=== PATIENT | male | born 1960 | race Caucasian/White ===

== ENCOUNTER 2016-04-14 14:59 | Inpatient (IN) ==
[2016-04-14] MEDS ORDERED: Verapamil 5 MG/2 ML VIAL ONE (15:04)
[2016-04-14] MEDS ORDERED: Heparin 1,000 UNITS/500 mL NS 500 ML ONE (15:04)
[2016-04-14] MEDS ORDERED: *HR* Heparin 10,000 UNIT/10 ML VIAL ONE (15:05)
[2016-04-14] MEDS ORDERED: Nitroglycerin 1,000 MCG/10 ML VIAL IV ONE (15:05)
[2016-04-14] MEDS ORDERED: 0.9 % Sodium Chloride 2,000 ML ONE (15:09)
[2016-04-14] MEDS ORDERED: *HR* Midazolam HCl 2 MG/2 ML VIAL ONE ×2 (15:11→15:29)
[2016-04-14] MEDS ORDERED: *HR* FentaNYL (PF) 100 MCG/2 ML VIAL ONE (15:11)
[2016-04-14] MEDS ORDERED: 0.9 % Sodium Chloride 1,000 ML ONE (15:11)
--- NOTE | 2016-04-14 15:23 | Emergency Department Note ---
Disposition Clinical Impression: STEMI (ST elevation myocardial infarction) Disposition: Admitted As Inpatient Condition: Good Time of Disposition: 20:21 Chest Pain HPI - General Chief Complaint: ED Chest Pain Stated Complaint: STEMI Time Seen by Provider: 04/14/16 15:21 Source: patient, EMS Limitations: no limitations - History of Present Illness HPI Narrative: Patient is a 55-year-old male who is transferred from the [facility] for STEMI. Catheter lab was called prior to his arrival. Patient arrived in stable condition and was able to converse without problem. States he had 2 episodes of chest pain over the last few weeks. The most recent one was over the new year. States he has had increasing generalized weakness over the last few days so he went in to see his physician at the [facility]. He was found to have a troponin of 33. ST segment elevation was seen in the inferior leads. Patient was transferred over for cardiac catheterization. Pt complaint: chest pain Onset (ago): day(s) Duration: intermittent Pain Location: substernal Severity: moderate Severity scale (1-10): 0 Quality: aching, sharp Pain Radiation: jaw/teeth Improves with: nothing Worsens with: nothing Associated symptoms: Reports: nausea, vomiting - Related Data Home Medications Medication Instructions Recorded Confirmed Amlodipine [Norvasc] 5 mg PO DAILY 04/14/16 04/14/16 Aspirin [Lo-Dose Aspirin EC] 81 mg PO DAILY 04/14/16 04/14/16 Hydrochlorothiazide 25 mg PO DAILY 04/14/16 04/14/16 Insulin Regular U-500 [HumuLIN R 250 unit SQ QAM 04/14/16 04/14/16 U-500] Insulin Regular U-500 [HumuLIN R 270 unit SQ QPM 04/14/16 04/14/16 U-500] Losartan Potassium [Cozaar] 50 mg PO DAILY 04/14/16 04/14/16 Metoprolol [Lopressor] 25 mg PO BID 04/14/16 04/14/16 Neomycin/Polymyxin B Sulf/Hc 3 drop LEFT EAR TID 04/14/16 04/14/16 [Ytwhxxym-Wxybncgwl-Ka Ear Soln] [place]-3/Dha/Epa/Fish Oil [Fish Oil 1 cap PO DAILY 04/14/16 04/14/16 1,000 mg Softgel] Rosuvastatin Calcium [Crestor] 10 mg PO DAILY 04/14/16 04/14/16 Previous Rx's Medication Instructions Recorded Clopidogrel [Plavix] 75 mg PO DAILY #30 tablet 04/16/16 Allergies Allergy/AdvReac Type Severity Reaction Status Date / Time atorvastatin Allergy Unknown See Verified 04/14/16 19:43 Comments lisinopril Allergy Unknown See Verified 04/14/16 19:43 Comments testosterone Allergy Unknown See Verified 04/14/16 19:43 Comments All systems ED: reviewed and negative except as stated. Chest Pain PMH - Past Medical History Medical history: Reports: coronary artery disease, diabetes, hyperlipidemia, hypertension, myocardial infarction Psychiatric history: Reports: no psych history - Social History Smoking Status: Never smoker Alcohol use: Reports: occasionally Physical Exam - General Limitations: no limitations General appearance: alert, in no apparent distress - Head Head exam: atraumatic, normocephalic, normal inspection - Eye Eye exam: Present: normal appearance, PERRL, EOMI - ENT ENT exam: normal exam, normal oropharynx, mucous membranes moist - Neck Neck exam: Present: normal inspection, full ROM, trachea midline - Chest Chest inspection: Present: normal inspection, symmetric chest wall rise - Respiratory Respiratory exam: Present: normal lung sounds bilaterally - Cardiovascular Cardiovascular exam: Present: regular rate, normal rhythm, normal heart sounds - Abdominal Exam Abdominal exam: Present: soft, Non-Tender. Absent: tenderness, distention, guarding, rebound, rigidity - Extremities Exam Extremities exam: Present: normal inspection, full ROM. Absent: tenderness, pedal edema - Neurological Exam Neurological exam: Present: alert, oriented X3 - Psychiatric Psychiatric exam: Present: normal affect, normal mood - Skin Skin exam: Present: warm, dry, intact, normal color Course Course Narrative: Patient seen and examined. Worsening generalized weakness. 2 episodes of chest pain over the last few weeks. No chest pain at this time. Patient to go to [facility]ist. Vital Signs Temperature 99 F 04/14/16 15:03 Pulse Rate 80 04/14/16 15:03 Respiratory Rate 16 04/14/16 15:03 Blood Pressure 97/70 04/14/16 15:03 O2 Sat by Pulse Oximetry 92 L 04/14/16 15:03 Temperature 97.9 F 04/16/16 14:42 Pulse Rate 82 04/16/16 14:42 Respiratory Rate 18 04/16/16 14:42 Blood Pressure 120/81 04/16/16 14:42 O2 Sat by Pulse Oximetry 95 04/16/16 14:42 Oxygen Delivery Oxygen Delivery Nasal Cannula Chest Pain - Medical Records Medical records reviewed: Yes I reviewed the patient's medical records. - Lab Data Lab results reviewed: Yes I reviewed the patient's lab results. Result diagrams: 04/15/16 05:58 04/16/16 09:44 Lab Results 04/14/16 04/14/16 04/14/16 Range/Units 15:15 15:15 15:15 Hgb 13.2 (12.9-16.9) g/dL Hct 40.5 (37.5-50.1) % PT 13.2 H (9.4-12.1) Seconds INR 1.2 BUN 26 (8-26) mg/dL - Radiology Data Radiology results reviewed: Yes I reviewed the patient's radiology results. - EKG Data EKG attestation: Yes I reviewed and interpreted this EKG. Attestation Statement - Attestation Attestation: I examined this patient and my medical decision-making was reviewed with the Resident Physician. I agree with the documented findings, disposition and treatment plan as described except to the extent set forth below. Inferior STEMI. Emergently to the [employer]. Borderline blood pressure, fluids started.
[2016-04-14] MEDS ORDERED: Tirofiban 12.5 MG/250ML 12.5 MG/250 ML BAG ONE (15:36)
[2016-04-14 15:53] LABS: Hematocrit 40.5 % (37.5-50.1); Hemoglobin 13.2 g/dL (12.9-16.9)
[2016-04-14 15:58] LABS: INR 1.2; Prothrombin Time 13.2 Seconds (9.4-12.1)
[2016-04-14 16:00] LABS: Blood Urea Nitrogen 26 mg/dL (8-26)
[2016-04-14] MEDS ORDERED: Nitroglycerin 0.4 MG TAB.SUBL SL PRN (16:14)
[2016-04-14] MEDS ORDERED: Tirofiban 12.5 MG/250ML 12.5 MG/250 ML BAG IVC SCH (16:15)
[2016-04-14] MEDS ORDERED: Ondansetron 4 MG/2 ML VIAL IVP PRN (16:23)
[2016-04-14] MEDS ORDERED: Dextrose Gel 15 GM PO PRN ×2 (16:30)
[2016-04-14] MEDS ORDERED: D5% in Water 1,000 ML IV PRN (16:30)
[2016-04-14] MEDS ORDERED: *HR* Dextrose 50 % in Water (Syg) 50 ML SYRINGE IVP PRN (16:30)
--- NOTE | 2016-04-14 16:32 | Invasive Diagnostic Lab Proc ---
Name: Moustapha Galvan Date of Study: 04/14/2016 Date: 1960 Ht: 67.0in Medical Record#: [id number] Age: 55 Wt: 362.00lb Gender: Male BSA: 2.6 Order #: [id number] BMI: 56.7 Physicians Procedure Physician: Vamsi Dunne MD, [facility] Referring MD: Referring MD: Staff Name Position Time In Shira Galvan RT (R) Scrub 03:23 PM Marga Aldrich RN Convertible Power Shovel Operator 03:23 PM Shira Ochoa RT (R) Monitor 03:23 PM Michelle Lorenzo RN Convertible Power Shovel Operator 03:26 PM Indications Indication STEMI Procedures Performed Procedure PRQ CARD REVASC OK 1 VSL L HRT ARTERY/VENTRICLE ANGIO Pre-Procedure Checklist Informed consent is complete signed and on chart. H\\T\\P is on chart. ID band is on and ID verified with patient. Patient NPO for procedure The procedure was described for the patient and questions were answered. Blood Pressure: 110/66 ECG is on chart. Rhythm: NSR Plan of Care Patient will tolerate the procedure without complications. Adequate level of comfort will be maintained. Hemodynamics will remain stable Patient will recover from procedure without complications. Respiratory function will be maintained. Cardiac rhythm will remain stable. Patient temperature will be maintained. Patient and/or family have verbalized understanding of the procedure. Patient Education Chief Complaint/Reason for Test: Cardiac Cath Developmental Category: Adult (18-64 years) Intravenous Access Time IV Size Location DC'd Fluid/Drip Rate Units RN 20g 1 04/14" Patent On Arrival Rt Hand 0.9NaCl 25 ml/hr Marga Aldrich RN 18g 1 04/14" Patent On Arrival Lt Hand Allergies No Known Allergies lisinopril testosterone lipitor Vital Signs Time BP (mmHg) HR (bpm) O2 Sat. RR (bpm) LOC 03:23 PM 110 / 66 88 93 % 17 03:28 PM 96 / 56 79 94 % 34 03:31 PM 86 / 65 103 87 % 15 03:33 PM 94 / 57 80 92 % 31 03:34 PM 102 / 56 102 95 % 22 03:38 PM 116 / 55 74 94 % 11 03:44 PM 104 / 57 105 97 % 19 03:48 PM 104 / 52 79 96 % 16 03:53 PM 107 / 60 98 97 % 13 03:58 PM 106 / 62 78 96 % 26 04:04 PM 116 / 52 83 96 % 28 Procedural Medications Time Medication Dose Units Method Given By 03:22 PM Oxygen 4 L/min nasal cannula Marga Aldrich RN 03:25 PM Versed 2 mg Intravenous Marga Aldrich RN 03:25 PM Fentanyl 25 mcg Intravenous Marga Aldrich RN 03:28 PM Lidocaine 2% 20 ml Subcutaneous Vamsi Dunne MD, [facility] 03:28 PM Versed 1 mg Intravenous Marga Aldrich RN 03:28 PM Fentanyl 25 mcg Intravenous Marga Aldrich RN 03:30 PM Oxygen 6 L/min nasal cannula Marga Aldrich RN 03:32 PM Oxygen 8 L/min simple face mask Marga Aldrich RN 03:36 PM 03:38 PM Aggrastat Bolus: 84 ml Intravenous Marga Aldrich RN 03:38 PM Aggrastat 12.5mg/250ml 30 ml Intravenous Marga Aldrich RN 04:09 PM Effient 60 mg Orally Marga Aldrich RN ASA Classification: Emergent Procedure: ASA score is assumed Maddie Score Preprocedure Postprocedure Activity 2- Moves 4 extremities sustained head lift Activity 2- Moves 4 extremities sustained head lift Circulation 2- SBP +/= 20 points of pre-anesthetic level Circulation 2- SBP +/= 20 points of pre-anesthetic level Consciousness 2- Awake and alert oriented x 3 Consciousness 2- Awake and alert oriented x 3 O2 Saturation 2- Able to maintain O2 satruation of 92% on room air O2 Saturation 2- Able to maintain O2 satruation of 92% on room air Respiratory 2- Able to deep breathe and cough well Respiratory 2- Able to deep breathe and cough well Total Score 10 Total Score 10 Contrast Agent: Isovue Diagnostic Contrast: 149 ml Total Contrast: 149 ml Fluoro Dose: 1435 mGy Activated Clotting Time Time Seconds to Clot 04:09 PM 214 Procedure Log Time Note Enter By 03:15 PM Pt arrived to label remover 2 at 15:15 tsites 03:20 PM Vitals capture started with the following parameters, Patient=Adult, Interval=5 min, Initial Gkormqnd=606 mmHg, Deflation Rate=5 mmHg, Cuff placed on Left Arm 03:20 PM CathStat 03:22 PM Physician arrived 15:22 tsites 03:22 PM Procedure start 15:22 tsites 03:22 PM Time: 15:22 Oxygen on at 4 L/min per nasal cannula by Marga Aldrich RN tsites 03: PM Vitals capture started with the following parameters, Patient=Adult, Interval=5 min, Initial Espbrjjl=400 mmHg, Deflation Rate=5 mmHg, Cuff placed on Left Arm 03: PM Shira Galvan (R) Position: Scrub Time in: 15: tsites 03: PM Marga Aldrich RN Position: Convertible Power Shovel Operator Time in: 15: tsites 03: PM Shira Ochoa (R) Position: Monitor Time in: : tsites 03: PM HR=88 bpm, DIOS=636/66 mmhg, SpO2=93.0 %, Resp=17 B/min 03:24 PM Patient charges- Angio tray pack, Navilyst 3mm J, Pulse Oximetry and ACIST tubing and transducer tsites 03:24 PM Case Delayed No tsites 03:25 PM Time out performed according to hospital policy tsites 03:25 PM Time: 15:25 Versed 2 mg Intravenous Given by Marga Aldrich RN tsites 03: PM Time: 15:25 Fentanyl 25 mcg Intravenous Given by Marga Aldrich RN tsites 03: PM Michelle Lorenzo RN Position: Convertible Power Shovel Operator Time in: 15: tsites 03: PM Hair removed from procedure site in holding area using clippers. Bilateral groin prepped with Chloraprep by Brynn HarrisR) then patient draped. Skin intact. tsites 03: PM Clinical Presentation: STEMI or equivalent tsites 03: PM Recorded ECG: HR=74 Condition=Condition 1 03:27 PM Pressure channel 2 zeroed. 03:27 PM labs drawn in the er prior to arrival asa given at the [facility] tsites 03: PM Time: 15:28 20 ml Lidocaine 2% to right groin Subcutaneous Given by Vamsi Dunne MD, [facility] tsites 03: PM Time: 15:28 Versed 1 mg Intravenous Given by Marga Aldrich RN tsites 03: PM Time: 15:28 Fentanyl 25 mcg Intravenous Given by Marga Aldrich RN tsites 03: PM HR=79 bpm, NIBP=96/56 mmhg, SpO2=94.0 %, Resp=34 B/min 03:29 PM Access obtained by percutaneous puncture. 6Fr 23cm Terumo [place] sheath placed in right Femoral artery. [id number] tsites 03:30 PM 0.035 145cm Navilyst 3mmJ wire [id number] tsites 03:30 PM 5Fr FL 4 catheter inserted over the wire [facility] tsites 03:30 PM Recorded Pressure: Ao, HR=93, Condition=Condition 1 (Aorta) Ao 73/55/64 03:30 PM NIBP STAT measurement started. 03:31 PM Time: 15:30 Oxygen on at 6 L/min per nasal cannula by Marga Aldrich RN tsites 03:31 PM LCA angiography performed in multiple views. tsites 03:31 PM PA=038 bpm, NIBP=86/65 mmhg, SpO2=87.0 %, Resp=15 B/min 03:32 PM Catheter removed tsites 03:32 PM 6Fr IM Runway guide catheter was used to cannulate the PCI vessel successfully. reused? No tsites 03:32 PM Time: 15:32 Oxygen on at 8 L/min per simple face mask by Marga Aldrich RN tsites 03:32 PM NIBP STAT measurement started. 03:33 PM HR=80 bpm, NIBP=94/57 mmhg, SpO2=92 %, Resp=31 B/min 03:33 PM RCA angiography performed in multiple views. tsites 03:34 PM BR=005 bpm, UVWE=637/56 mmhg, SpO2=95 %, Resp=22 B/min 03:34 PM PCI lesion in Mid RCA. tsites 03:34 PM .014 PT Graphix 182cm guide wire across target lesion- successful. reused? No tsites 03:34 PM Inflation device was opened. tsites 03:34 PM 2.0 mm x 12 mm Emerge Monorail balloon across target lesion- successful. reused? No tsites 03:34 PM Balloon inflated @ 8 florentin for 6 seconds tsites 03:35 PM Balloon inflated @ 14 florentin for 7 seconds tsites 03:35 PM Balloon inflated @ 14 florentin for 8 seconds tsites 03:36 PM Balloon inflated @ 14 florentin for 8 seconds tsites 03:36 PM Time: 15:36 Heparin 4000 units Intravenous Given by Marga Aldrich RN tsites 03:36 PM Balloon inflated @ 14 florentin for 7 seconds tsites 03:37 PM Balloon catheter removed intact. tsites 03:37 PM 2.5 mm x 15 mm Emerge Monorail balloon across target lesion- successful. reused? No tsites 03:38 PM Balloon inflated @ 10 florentin for 8 seconds tsites 03:38 PM Time: 15:38 Aggrastat Bolus: 84 ml Intravenous Given by Marga Aldrich RN Tillman pump tsites 03:38 PM Balloon inflated @ 12 florentin for 10 seconds tsites 03:38 PM HR=74 bpm, ZXWZ=749/55 mmhg, SpO2=94.0 %, Resp=11 B/min 03:39 PM Time: 15:38 Aggrastat 12.5mg/250ml 30 ml Intravenous Given by Marga Aldrich RN Tillman pump tsites 03:39 PM Balloon inflated @ 12 florentin for 10 seconds tsites 03:39 PM Balloon inflated @ 14 florentin for 10 seconds tsites 03:40 PM Balloon inflated @ 14 florentin for 6 seconds tsites 03:40 PM Recorded Pressure: Ao, HR=95, Condition=Condition 1 (Aorta) Ao 80/60/69 03:41 PM Balloon inflated @ 14 florentin for 8 seconds tsites 03:41 PM Balloon inflated @ 6 florentin for 10 seconds tsites 03:42 PM Lesion found in Proximal RCA. Pre Stenosis: 100 Pre FROYLAN Flow: 0: No Flow/No perfusion tsites 03:42 PM Balloon inflated @ 14 florentin for 12 seconds tsites 03:42 PM Balloon inflated @ 14 florentin for 6 seconds tsites 03:43 PM Balloon inflated @ 6 florentin for 7 seconds tsites 03:43 PM Recorded ECG: HR=93 Condition=Condition 1 03:44 PM GW=786 bpm, PQBF=892/57 mmhg, SpO2=97 %, Resp=19 B/min 03:45 PM Balloon inflated @ 6 florentin for 5 seconds tsites 03:45 PM Balloon inflated @ 5 florentin for 8 seconds tsites 03:47 PM 2.5mm x 28mm Synergy bioabsorbable stent across target lesion- successful Lot #[id number] tsites 03:48 PM Stent deployed @ 18 florentin for 14 seconds tsites 03:48 PM HR=79 bpm, EBDL=804/52 mmhg, SpO2=96.0 %, Resp=16 B/min 03:49 PM Stent balloon reinflated @ 14 florentin for 10 seconds tsites 03:50 PM Stent balloon reinflated @ 16 floerntin for 12 seconds tsites 03:51 PM Stent delivery system removed intact. tsites 03:52 PM 2.5mm x 38mm Synergy bioabsorbable stent across target lesion- successful Lot #[id number] tsites 03:52 PM Stent deployed @ 18 florentin for 10 seconds tsites 03:53 PM Stent balloon reinflated @ 18 florentin for 14 seconds tsites 03:53 PM HR=98 bpm, ITGE=532/60 mmhg, SpO2=97.0 %, Resp=13 B/min 03:54 PM Stent delivery system removed intact. tsites 03:55 PM 3.0 mm x 30mm NC Emerge balloon across target lesion- successful. reused? No tsites 03:56 PM Balloon inflated @ 14 florentin for 8 seconds tsites 03:57 PM Balloon inflated @ 20 florentin for 13 seconds tsites 03:58 PM HR=78 bpm, RJAG=917/62 mmhg, SpO2=96.0 %, Resp=26 B/min 04:00 PM Guide catheter removed intact. tsites 04:00 PM Guide wire removed intact. tsites 04:00 PM wire reinserted catheter removed tsites 04:01 PM 5Fr Pigtail catheter inserted over the wire DNC tsites 04:02 PM Recorded Pressure: LV, HR=83, Condition=Condition 1 (Left Ventricle) LV 102/11/25 04:02 PM Catheter selectively placed in left ventricle tsites 04:02 PM Bolus angiogram of left Ventricle complete: 11 ml/sec for a total of 33 mls tsites 04:03 PM Recorded Pressure: LV, Ao, HR=85, Condition=Condition 1 (Left Ventricle) LV 95/7/35, (Aorta) Ao 96/47/66 04:03 PM Catheter removed tsites 04:03 PM Bolus angiogram of right Femoral complete: 2 ml/sec for a total of 4 mls tsites 04:04 PM HR=83 bpm, JZGU=745/52 mmhg, SpO2=96.0 %, Resp=28 B/min 04:09 PM At 16:09 the ACT was 214 seconds. tsites 04:09 PM Procedure completed at 16:09 tsites 04:09 PM Sign out completed: Radiation Dose 1435 mGy Fluoro Time: 9.2 Isovue 370 - 200ml contrast 149 ml given by Vamsi Dunne MD, [facility]. Complications: NoneConfirmed administered medications: Yes tsites 04:10 PM Time: 16:09 Effient 60 mg Orally Given by Marga Aldrich RN tsites 04:11 PM Isovue 370 - 500ml,1 Bottle(s) used. tsites 04:11 PM Sheath left in place to be pulled on floor/holding areaV+Pad tsites 04:11 PM Post ECG NSR tsites 04:11 PM Post Blood Pressure 122/72 tsites 04:11 PM 16:11 Post Pulses Bilateral DP \\T\\ PT 1+ tsites 04:11 PM Information taught Cardiac Cath, PCI, and V+ Pad tsites 04:12 PM Education needs Procedure, Plan of Care, and Responsibilities of Patient in Care tsites 04:12 PM Learning barriers :None tsites 04:12 PM Education Methods Verbal tsites 04:12 PM Education evaluation Able to repeat information tsites 04:12 PM Site status No bleeding/hematoma - Rt Groin as reported by Shira Galvan RT (R) at 16:12 tsites 04:12 PM Opsite applied tsites 04:12 PM Plavix, Effient or Brilinta given Yes tsites 04:12 PM Delay to floor No tsites 04:14 PM Report given to jazmine ANGEL Pt taken to ICU Room #4. 16:12 tsites 04:16 PM Patient out of room: 16:16 tsites 04:16 PM Complications: None tsites 04:16 PM Family placed in consult room. tsites 04:17 PM Lesion found in LMCA. Pre Stenosis: 20 Pre FROYLAN Flow: tsites 04:17 PM Lesion found in Mid LAD. Pre Stenosis: 40 Pre FROYLAN Flow: tsites 04:17 PM Lesion found in Mid LAD. Pre Stenosis: 20 Pre FROYLAN Flow: tsites 04:17 PM Lesion found in 1st Diagonal. Pre Stenosis: 50 Pre FROYLAN Flow: tsites 04:17 PM Left Main Coronary Artery with 20% stenosis tsites 04:18 PM Mid/Distal Left Anterior Descending Coronary Artery and diagonal branches with 50% stenosis. If graft is supplying this area, % stenosis tsites 04:18 PM Right Coronary, Right Posterior Descending Arteries with Right Posterolateral and Acute Marginal branches with 100 % stenosis. If graft is supplying this area, % stenosis tsites 04:18 PM Coronary Dominance: right tsites Complications Complication None None Hemodynamics Pressures Site Systolic/A Wave Diastolic/V Wave Mean AO 73 55 64 AO 80 60 69 LV 102 11 25 LV 95 7 35 AO 96 47 66 Post Procedure Information Blood Pressure: 122/72 mmHg Rhythm: NSR Post procedural instructions were given Closure Device Time Device Success/Fail 04/14/2016 4:19:00 PM Manual Compression Site Checks Time Location Status Staff Sheath In? Note 04:12 PM Rt Groin No bleeding/hematoma Shira Galvan RT (R) Pulses Time Site Pre-Procedure Post-Procedure Note Bilateral DP \\T\\ PT 1+ 4:11:00 PM Bilateral DP \\T\\ PT 1+ Updated by Shira Ochoa RT (R) on 04/14/2016 4:26:36 PM Shira Gabriela, RT electronically signed on 04/14/2016 4:27:31 PM with status of Final
--- NOTE | 2016-04-14 16:35 | Event Note ---
Date of Encounter: 04/14/16 Time of Encounter: 16:30 - Cardiology Event Note Late presenting STEMI s/p PCI RCA SCOTT x 2 (100%) with otherwise mild disease. EF 40%. Femoral access site at appropriate level of the common femoral artery over the femoral head and below the hypogastric art/inguinal ligament. Long sheath placed secondary to morbid obesity. Nursing informed that arterial puncture site likely ~3 inches cranial to the arterial sheath entry at the skin.
[2016-04-14] MEDS: Insulin LISPRO 300 UNITS/3 ML VIAL SQ SCH (17:04)
[2016-04-14 17:24] LABS: Calcium 8.8 mg/dL (8.6-10.8); Potassium 4.1 mEq/L (3.5-4.5)
--- NOTE | 2016-04-14 18:22 | Cardiology History & Physical ---
Date of Encounter: 04/19/16 Time of Encounter: 17:30 Assessment and Plan (1) STEMI (ST elevation myocardial infarction) Status: Acute Ongoing cardiac symptoms with inferior current of injury. Proceed with emergent LHC to delineate any coronary disease amenable to intervention. EF assessment will be completed. Labs are pending. Dual antiplatelet therapy, and heparin will be given. The assessment and plan as outlined above was discussed with the patient and/or family members who expressed understanding and agreement. All questions were answered. Qualifiers: Involved coronary artery: right coronary artery Qualified Code(s): I21.11 - ST elevation (STEMI) myocardial infarction involving right coronary artery (2) Diabetes Status: Acute Sliding scale insulin, QID FS. The assessment and plan as outlined above was discussed with the patient and/or family members who expressed understanding and agreement. All questions were answered. Qualifiers: Diabetes mellitus type: type 2 Diabetes mellitus complication status: with circulatory complication Diabetes mellitus complication detail: with other circulatory complications Diabetes mellitus joint terminal attack controller insulin use: with senior care use Qualified Code(s): E11.59 - Type 2 diabetes mellitus with other circulatory complications; Z79.4 - FDC (current) use of insulin (3) HTN (hypertension) Status: Chronic The assessment and plan as outlined above was discussed with the patient and/or family members who expressed understanding and agreement. All questions were answered. Qualifiers: Hypertension type: essential hypertension Qualified Code(s): I10 - Essential (primary) hypertension History of Present Illness Chief complaint: Chest pressure and dyspnea HPI: Mr. Galvan is a 55 year old male with no stated cardiac history presents with ongoing dyspnea on exertion and mild chest pressure after an 8 hour episode of more intense chest pressure Tuesday. He was seen at his PCP and EKG revealed inferior current of injury and STEMI alert was emergently activated. He denies syncope or palpitations. Past Med Surg Social Fam HX - Past Medical History Medical history: arthritis, coronary artery disease, diabetes, hyperlipidemia, hypertension, myocardial infarction Psychiatric history: no psych history - Past Surgical History Surgical History: no surgical history - Social History Smoking Status: Never smoker Smokeless Tobacco Status: No Alcohol use: occasionally Drug use: marijuana Medications and Allergies Amlodipine [Norvasc] 5 mg PO DAILY 04/14/16 [History] Aspirin [Lo-Dose Aspirin EC] 81 mg PO DAILY 04/14/16 [History] Hydrochlorothiazide 25 mg PO DAILY 04/14/16 [History] Insulin Regular U-500 [HumuLIN R U-500] 250 unit SQ QAM 04/14/16 [History] Insulin Regular U-500 [HumuLIN R U-500] 270 unit SQ QPM 04/14/16 [History] Losartan Potassium [Cozaar] 50 mg PO DAILY 04/14/16 [History] Metoprolol [Lopressor] 25 mg PO BID 04/14/16 [History] Neomycin/Polymyxin B Sulf/Hc [Poxycwgh-Oamtmhaba-Gv Ear Soln] 3 drop LEFT EAR TID 04/14/16 [History] [place]-3/Dha/Epa/Fish Oil [Fish Oil 1,000 mg Softgel] 1 cap PO DAILY 04/14/16 [ History] Rosuvastatin Calcium [Crestor] 10 mg PO DAILY 04/14/16 [History] Clopidogrel [Plavix] 75 mg PO DAILY #30 tablet 04/16/16 [Rx] Allergies atorvastatin Allergy (Unknown, Verified 04/14/16 19:43) See Comments UNABLE TO VERIFY REACTION- [facility] lisinopril Allergy (Unknown, Verified 04/14/16 19:43) See Comments UNABLE TO VERIFY REACTION- LISTED ON [facility] testosterone Allergy (Unknown, Verified 04/14/16 19:43) See Comments UNABLE TO VERIFY REACTION- LISTED ON [facility] All Systems Review: A 10-system review of systems was performed and is negative for pertinent findings except as documented above in the HPI. - Constitutional Constitutional: no chills, no fever(s) - EENT Eyes: no blurred vision, no loss of vision Nose, mouth and throat: no bleeding gums, no epistaxis - Cardiovascular Cardiovascular: chest pain at rest, chest pain with exertion - Respiratory Respiratory: no hemoptysis, no wheezing - Gastrointestinal Gastrointestinal: no hematemesis, no hematochezia - Genitourinary Genitourinary: no dysuria, no hematuria - Musculoskeletal Musculoskeletal: no arthralgias, no myalgias - Integumentary Integumentary: no erythema, no unusual bruising - Neurological Neurological: no loss of vision, no syncope - Psychiatric Psychiatric: no anxiety, no depression - Hematological/Lymphatic Hematologic/Lymphatic: no easy bleeding, no easy bruising Physical Examination Vital Signs, Last 4 Hours Temp Pulse Pulse Resp BP Pulse Ox 04/14/16 17:00 73 16 134/84 95 04/14/16 16:47 76 04/14/16 16:45 78 78 13 117/88 95 04/14/16 16:30 81 81 12 121/75 95 04/14/16 16:26 100.4 F H 82 82 12 108/67 88 L General: Conversant HEENT: Atraumatic, Normocephaly, Mucus Membranes Moist Neck: No JVD, Normal carotid pulses Cardiac: Reg Rate and Rhythm, Normal S1 and S2, No Murmur Lungs: Normal Breath Sounds Neuro: Alert and responsive Abdomen: Soft Skin: No rashes noted on visualized skin Musculoskeletal: No Chest Wall Tenderness Extremities: No Edema Results 04/15/16 05:58 04/16/16 09:44 Lab Results 04/14/16 16:52 Sodium 137 Potassium 4.1 Chloride 104 Carbon Dioxide 25 BUN 26 Creatinine 1.73 H Glucose 96 Calcium 8.8
[2016-04-14] MEDS: 0.9 % Sodium Chloride 1,000 ML IVC SCH (18:54)
[2016-04-14] MEDS ORDERED: Insulin LISPRO 300 UNITS/3 ML VIAL SQ SCH (21:00)
[2016-04-15] MEDS ORDERED: *HR* Enoxaparin 40 MG/0.4 ML SYRINGE SQ SCH (06:00)
[2016-04-15 06:14] LABS: Basophils % 0.3 %; Eosinophils # 0.1 K/mcL (0.0-0.6); Hematocrit 40.5 % (37.5-50.1); Hemoglobin 13.1 g/dL (12.9-16.9); Immature Granulocytes % 0.5 % (0-4); Lymphocytes # 1.6 K/mcL (0.6-4.6); Lymphocytes % 16.6 %; Mean Corpuscular HGB Conc 32.3 g/dL (31.6-35.5); Mean Corpuscular Hemoglobin 31.3 pg (28.0-33.3); Mean Corpuscular Volume 96.9 fL (83.0-100.0); Mean Platelet Volume 9.7 fL (9.4-12.4); Monocytes % 9.9 %; Neutrophils # 7.1 K/mcL (1.6-8.9); Platelet Count 204 K/mcL (140-400); Red Blood Count 4.18 M/mcL (4.19-5.50); Red Cell Distribution Width 14.2 % (11.5-14.5); Segmented Neutrophils % 71.7 %
[2016-04-15 06:28] LABS: Albumin 2.4 g/dL (3.5-5.0); Albumin/Globulin Ratio 0.6 (1.1-2.2); Bilirubin,Total 0.5 mg/dL (0.2-1.2); Calcium 8.9 mg/dL (8.6-10.8); Globulin 4.3 g/dL (2.4-3.5); Potassium 4.7 mEq/L (3.5-4.5); Total Protein 6.7 g/dL (6.0-8.3)
[2016-04-15] MEDS: Insulin LISPRO 300 UNITS/3 ML VIAL SQ SCH ×4 (07:37→22:36)
[2016-04-15] MEDS ORDERED: Aspirin 81 MG TAB.CHEW PO SCH (09:00)
--- NOTE | 2016-04-15 09:36 | Invasive Diagnostic Lab ---
Name: Moustapha Galvan Date of Study: 04/14/2016 Date: 1960 Ht: 170.2 cm /67.0 in Medical Record#: [id number] Age: 55 Wt: 164.2 kg / 362.00 lb Account/Order#: [id number] Gender: Male BSA: 2.6 Order #: [id number] Fluoro Dose: 1435 mGy BMI: 56.7 Procedure Physician: Vamsi Dunne MD, [facility] Referring MD: Referring MD: Procedures Performed: PCI of Acute MT LEFT HEART CATH Iliofemoral angiography w/ cath Indications: STEMI Impressions: There is severe one vessel coronary artery disease. Mildly reduced LVEF 35-40% Patient had successful PTCA/Drug-Eluting Stent placement in the mid-distal RCA O/L stent x 2 postdilated with 3.0 NC Recommendations: Optimal medical therapy of patient's disease. Aggressive risk factor modification. History/Risk Factors: obesity diabetic retinopathy neuropathy sleep apnea Diabetes Hypertension Dyslipidemia Procedure Access obtained in the right Femoral artery by percutaneous puncture Patient had successful PTCA/Drug-Eluting Stent placement in the proximal RCA. Complications: None, None Contrast: Isovue 149ml Closure Device: Manual Compression Hemodynamics: Pressures Site Systolic/ A Wave Diastolic/ V Wave End Diastolic/ Mean HR AO 73 55 64 93 AO 80 60 69 95 LV 102 11 25 83 LV 95 7 35 84 AO 96 47 66 85 LV Ventriculography Ejection Method: LV Gram Ejection Fraction: 35-40% Wall Motion: SEAY Anterobasal Normal Anterolateral Normal Apical: Normal Inferoapical Moderate Hypokinesis Inferobasal Akinesis Coronary Dominance: right Lesion Findings/Interventions * Left Main Coronary Artery There is a 30% stenosis in the LMCA. * Left Anterior Descending - smaller caliber vessel, likely diffuse negative remodeling There is a 30% stenosis in the Mid LAD. There is a 20% stenosis in the Distal LAD. There is a 50% stenosis in the 1st Diagonal. * Circumflex The Circumflex is small in size with mild diffuse disease * Right Coronary Artery There is a 60 mm long, 100% stenosis in the Mid-distal RCA. The lesion has a FROYLAN flow of 0 and has thrombus present. An intervention was performed on the Proximal RCA with a final stenosis of 0%. There were no lesion complications. The final FROYLAN flow was 3. Iliofemoral angiography reveals no significant disease in the distal external iliac or common femoral artery with appropriate sheath placement in the PAYMENT COLLECTOR. Interventional Device(s) Vessel Segment Type Name Diameter (mm) Length (mm) Proximal RCA balloon Emerge Monorail 2 12 Proximal RCA balloon Emerge Monorail 2.5 15 Proximal RCA bioabsorbable stent Synergy 2.5 28 Proximal RCA bioabsorbable stent Synergy 2.5 38 Proximal RCA balloon NC Emerge 3 30 Updated by [facility], RT (R) on 04/14/2016 4:27:37 PM Vamsi Dunne MD, FACC electronically signed on 04/15/2016 9:31:20 AM with status of Final
--- NOTE | 2016-04-15 09:43 | Cardiology Progress Note ---
<Tye Leon - Last Filed: 04/15/16 11:23> Date of Encounter: 04/15/16 Time of Encounter: 08:20 Assessment and Plan (1) STEMI (ST elevation myocardial infarction) Current Visit: Yes Status: Acute Patient presented with STEMI with inferior lead elevation and trop >50 and is now s/p PCI RCA SCOTT x 2 (100%). Patient is in no acute distress. Echocardiogram and todays EKG are still pending. Blood pressure, heart rate and telemetry normal. Plan: - Obtain and interpret Echocardiogram and EKG results. - Stop Effient and start Plavix 75mg once per day start 04/16/2016 - Continue Statin, ASA, Betablockade, nitroglycerine prn. Qualifiers: Involved coronary artery: right coronary artery Qualified Code(s): I21.11 - ST elevation (STEMI) myocardial infarction involving right coronary artery (2) HTN (hypertension) Current Visit: Yes Status: Acute Blood pressure is stable. Continue current inpatient regiment. Qualifiers: Qualified Code(s): I10 - Essential (primary) hypertension (3) Diabetes Current Visit: Yes Status: Acute Patients glucose is slightly elevated to 140's this am. He is post procedure. If his glucose continues to rise may have to start long acting insulin Levimer. Qualifiers: Diabetes mellitus type: type 2 Diabetes mellitus complication status: with circulatory complication Diabetes mellitus complication detail: with other circulatory complications Qualified Code(s): E11.59 - Type 2 diabetes mellitus with other circulatory complications Discussion w patient/family: The assessment and plan as outlined above was discussed with the patient and/or family members who expressed understanding and agreement. All questions were answered. Thank you for involving us in the care of your patient. Please call with any questions. Subjective Interval history: Mr. Galvan has been seen and examined at patient bedside this am. He is awake alert and interactive and in no acute distress. He says that he feels ok and better than he was. He denies any distress, chest pain, chest tightness, diaphoresis, N/V/D/C. He says he has not eaten yet this am. He would like to know if he can go home. He had no further questions or concerns. Objective Vital Signs, Last 4 Hours Temp Pulse Resp BP Pulse Ox 04/15/16 09:00 81 16 113/86 92 L 04/15/16 08:00 82 22 91/79 94 L 04/15/16 07:30 98.3 F 86 20 103/84 94 L 04/15/16 07:00 83 04/15/16 05:52 83 20 99/53 91 L General: Conversant, No Apparent Distress HEENT: Atraumatic, Normocephaly, Mucus Membranes Moist Neck: No JVD, Normal carotid pulses Cardiac: Reg Rate and Rhythm, Normal S1 and S2, No Murmur Lungs: Normal Breath Sounds, No Wheeze, Rales, Rhonchi Neuro: Alert and responsive, No focal deficits noted Abdomen: Soft, Non-Tender, Other (obese) Skin: No rashes noted on visualized skin Musculoskeletal: No Chest Wall Tenderness Extremities: No Clubbing, No Cyanosis, No Edema, Normal Pulses Results 04/15/16 05:58 04/15/16 05:58 Lab Results 04/14/16 04/14/16 04/15/16 16:52 18:15 05:58 WBC 9.9 Hgb 13.1 Hct 40.5 Plt Count 204 Sodium 137 Potassium 4.1 Chloride 104 Carbon Dioxide 25 BUN 26 Creatinine 1.73 H Glucose 96 Calcium 8.8 Total Bilirubin AST ALT Alkaline Phosphatase Troponin I > 50.00 H* 04/15/16 05:58 WBC Hgb Hct Plt Count Sodium 140 Potassium 4.7 H Chloride 106 Carbon Dioxide 28 BUN 28 H Creatinine 1.59 H Glucose 142 H Calcium 8.9 Total Bilirubin 0.5 AST 137 H ALT 100 H Alkaline Phosphatase 247 H Troponin I Consult Discharge Plan - Plan [facility]errals: [facility]Primary Care Provider[facility] - <Anna Small - Last Filed: 04/15/16 17:18> Date of Encounter: 04/15/16 Assessment and Plan Discussion w patient/family: I examined this patient and my medical decision-making was reviewed with the CONVALESCENT SITTER/PA/Advanced Practice Nurse/Resident Physician. I agree with the documented findings, disposition and treatment plan. Mr. Galvan has no concerning cardiac complaints today. He is free of chest pain and hemodynamically stable without congestive findings. There are no new murmurs on exam. Recommend continuing antiplatelet therapy for a minimum of 12 months. He is on an ARB at home which will be started tomorrow. Continue BB and statin. Transfer to floor. Objective Vital Signs, Last 4 Hours Temp Pulse Resp BP Pulse Ox 04/15/16 16:00 86 16 114/68 91 L 04/15/16 15:35 97.9 F 04/15/16 15:00 90 04/15/16 14:26 90 20 135/88 90 L Results 04/15/16 05:58 04/15/16 05:58 Lab Results 04/14/16 04/14/16 04/15/16 16:52 18:15 05:58 WBC 9.9 Hgb 13.1 Hct 40.5 Plt Count 204 Sodium 137 Potassium 4.1 Chloride 104 Carbon Dioxide 25 BUN 26 Creatinine 1.73 H Glucose 96 Calcium 8.8 Total Bilirubin AST ALT Alkaline Phosphatase Troponin I > 50.00 H* 04/15/16 05:58 WBC Hgb Hct Plt Count Sodium 140 Potassium 4.7 H Chloride 106 Carbon Dioxide 28 BUN 28 H Creatinine 1.59 H Glucose 142 H Calcium 8.9 Total Bilirubin 0.5 AST 137 H ALT 100 H Alkaline Phosphatase 247 H Troponin I
[2016-04-15] MEDS ORDERED: Perflutren Lipid Microsphere 1.3 ML in 0.9 % Sodium Chloride 8.7 ML IVP ONE (09:47)
--- NOTE | 2016-04-15 10:26 | Electrocardiograph Report ---
[facility] Test Date: 2016-04-14 Pat Name: Moustapha Galvan Department: 109 Room: 04 Gender: M Pigment Pumper: : 1960 Requested By: Vamsi Dunne Order Number: [id number] Reading MD: Vamsi Dunne MD Measurements Intervals [place] Rate: 78 P: 62 SD: 186 QRS: -21 QRSD: 98 T: -29 QT: 342 QTc: 375 Interpretive Statements SINUS RHYTHM LOW QRS VOLTAGE IN PRECORDIAL LEADS INFERIOR MYOCARDIAL INFARCTION, PROBABLY RECENT WITH POSTERIOR EXTENSION ACUTE NE Electronically Signed On 04-15-16 10:25:26 EST by Vamsi Dunne MD
[2016-04-15] MEDS: 0.9 % Sodium Chloride 1,000 ML IVC SCH (11:27)
--- NOTE | 2016-04-15 11:35 | ECHO - Doppler Report ---
Echo with Imaging Enhancement Agent Name: Moustapha Galvan Date of Study: 04/15/2016 Date: 1960 Ht: 67.0 in Medical Record#: [id number] Age: 55 Wt: 360.0 lb Gender: Male BSA: 2.6 Order #: [id number] Location: [facility] Room #: IC04 Reading Physician: Ras Barrera MD, [facility] Capital Campaign Fundraiser: Zeinab Lloyd Ordering Physician: Vamsi Dunne MD, [facility] Primary Physician: [facility] Indications: ACS Impressions: Technically sub-optimal due to poor echocardiographic windows. Echo contrast was used. Moderate LV systolic dysfunction, LVEF 35-40%. There is severe hypokinesis of the basal-mid inferior and basal-mid inferolateral cabrera. Mild concentric left ventricular hypertrophy. Moderate left ventricular diastolic dysfunction. Normal right ventricular size. Mild RV hypokinesis. Mild tricuspid regurgitation. Mild pulmonary hypertension. Estimated RVSP = 37 mmHg. Left Ventricular Wall Motion: Rest Echo Findings The mid inferior, basal inferior, mid inferior lateral and basal inferior lateral cabrera were hypokinetic. All other wall segments showed normal motion. Findings: Study Quality * Technically sub-optimal due to poor echocardiographic windows. Echo contrast was used. ECG Findings * Sinus rhythm with BBB. Left Ventricle * Moderate LV systolic dysfunction, LVEF 35-40%. There is severe hypokinesis of the basal-mid inferior and basal-mid inferolateral cabrera. * Mild concentric left ventricular hypertrophy. * Moderate left ventricular diastolic dysfunction. Right Ventricle * Normal right ventricular size. Mild RV hypokinesis. Left Atrium * Normal left atrial size. Right Atrium * Normal right atrial size. Aorta * Normally sized aortic root. Pericardium * There is no pericardial effusion present. IVC * The IVC is dilated. Aortic Valve * Aortic valve not well visualized. Appears trileaflet. * No aortic stenosis. * No aortic regurgitation. Mitral Valve * Normal mitral valve structure. * No mitral stenosis. * Trace mitral regurgitation. Tricuspid Valve * Tricuspid valve not well visualized. * No tricuspid stenosis. * Mild tricuspid regurgitation. * Mild pulmonary hypertension. Estimated RVSP = 37 mmHg. Pulmonic Valve * Pulmonic valve not well visualized. * No pulmonic stenosis. * No pulmonic regurgitation. History Hypertension Diabetes Hypercholesteremia History of CAD/PTCA Myocardial Infarction Contrast: Definity 1.3 ml in 8.7 ml of saline 3 ml. Measurements: BP: 99/ 53 2D Normal Values RVIDd: 3.50 cm IVSd: 1.30 cm 0.6 - 1.0 cm LVIDd: 5.70 cm 3.7 - 5.6 cm LVPWd: 1.20 cm 0.6 - 1.1 cm LVIDs: 4.20 cm 1.5 - 3.6 cm AO: 3.00 cm < 4.0 cm LA volume: 35 Mitral Valve Peak E:.83 m/sec Peak A:.71 m/sec E/A Ratio:1.2 Peak E' Lat Bradly:4.48 cm/s Peak E' Med Bradly:4.48 cm/s E/E' Lat Ratio:18.6 E/E' Med Ratio:18.6 Tricuspid Valve TV Regurg Peak Grad: 22.00mmHg TV Regurg Peak Bradly: 2.32m/sec Updated by Ras Barrera MD, [facility] on 04/15/2016 11:29:25 AM electronically signed on 04/15/2016 11:30:31 AM with status of Final Wall Motion Wyman: 1=Normal, 2=Hypokinesis, 3=Akinesis, 4=Dyskinesis, 5=Aneurysmal, 6=Hyperkinetic, X=Not Visualized (Blank)=Missing
[2016-04-15] MEDS ORDERED: Nitroglycerin 0.4 MG TAB.SUBL SL PRN (16:38)
[2016-04-15] MEDS ORDERED: Dextrose Gel 15 GM PO PRN ×2 (16:38)
[2016-04-15] MEDS ORDERED: *HR* Dextrose 50 % in Water (Syg) 50 ML SYRINGE IVP PRN (16:38)
[2016-04-15] MEDS ORDERED: 0.9 % Sodium Chloride 1,000 ML IVC SCH (16:38)
[2016-04-15] MEDS ORDERED: Ondansetron 4 MG/2 ML VIAL IVP PRN (16:38)
[2016-04-15] MEDS ORDERED: D5% in Water 1,000 ML IV PRN (16:38)
[2016-04-15] MEDS ORDERED: Insulin DETEMIR 100 UNIT/ML X5UNITS SQ SCH (21:00)
[2016-04-15] MEDS: *HR* Insulin Regular U-500 500 UNIT/ML SQ SCH (22:36)
[2016-04-16] MEDS: *HR* Enoxaparin 40 MG/0.4 ML SYRINGE SQ SCH (06:22)
--- NOTE | 2016-04-16 09:02 | Cardiology Progress Note ---
<Tye Leon - Last Filed: 04/16/16 10:17> Date of Encounter: 04/16/16 Time of Encounter: 08:59 Assessment and Plan (1) STEMI (ST elevation myocardial infarction) Current Visit: Yes Status: Acute Patient presented with STEMI with inferior lead elevation and trop >50 and is now s/p PCI RCA SCOTT x 2 (100%). Patient is in no acute distress. Blood pressure , heart rate and telemetry normal. Echocardiogram 04/15/2016: Moderate LV systolic dysfunction, LVEF 35-40%. There is severe hypokinesis of the basal-mid inferior and basal-mid inferolateral cabrera. Mild concetric left ventricular hypetrophy. Moderate left ventricular diastolic dysfunction. Normal right ventricular size, mild RV hypokinesis. Mild tricuspid regurgitation, mild pulmonary hypertension. RVSP 37mmHg. Plan: - Continue Plavix 75mg once per day - Continue Statin, ASA, Betablockade, nitroglycerine prn. - Continue cardiac diet/diabetic diet. Qualifiers: Involved coronary artery: right coronary artery Qualified Code(s): I21.11 - ST elevation (STEMI) myocardial infarction involving right coronary artery (2) HTN (hypertension) Current Visit: Yes Status: Acute Blood pressure is stable. Continue current inpatient regiment. Qualifiers: Qualified Code(s): I10 - Essential (primary) hypertension (3) Diabetes Current Visit: Yes Status: Acute Patients glucoses are under control this am. He was restarted on Humolog U-500 at 100units BID with medium inpatient sliding scale. Plan: - Continue current inpatient insulin regiment - Continue diabetic/cardiac diet - Continue ACHS glucose monitoring. Qualifiers: Diabetes mellitus type: type 2 Diabetes mellitus complication status: with circulatory complication Diabetes mellitus complication detail: with other circulatory complications Qualified Code(s): E11.59 - Type 2 diabetes mellitus with other circulatory complications Discussion w patient/family: The assessment and plan as outlined above was discussed with the patient and/or family members who expressed understanding and agreement. All questions were answered. Thank you for involving us in the care of your patient. Please call with any questions. Subjective Interval history: Mr. Galvan has been seen and examined at patient bedside this am. He is awake alert and interactive and in no acute distress. He wishes to go home when he is stable. He has tolerated oral intake and says his only discomfort is pain in his back from laying in bed. He denies any distress, chest pain, chest tightness , diaphoresis, N/V/D/C. He had no further questions or concerns. Objective Vital Signs, Last 4 Hours Temp Pulse Resp BP Pulse Ox 04/16/16 07:51 97.6 F 84 18 119/80 95 General: Conversant, No Apparent Distress HEENT: Atraumatic, Normocephaly, Mucus Membranes Moist Neck: No JVD, Normal carotid pulses Cardiac: Reg Rate and Rhythm, Normal S1 and S2, No Murmur Lungs: Normal Breath Sounds, No Wheeze, Rales, Rhonchi Neuro: Alert and responsive, No focal deficits noted Abdomen: Soft, Non-Tender, Other (obese abdomen) Skin: No rashes noted on visualized skin Musculoskeletal: No Chest Wall Tenderness Extremities: No Clubbing, No Cyanosis, Normal Pulses, Other (nonpitting edema in bilateral LE) Results 04/15/16 05:58 04/16/16 09:44 Consult Discharge Plan - Plan Instructions: Myocardial Infarction (DC) Additional Instructions: Take medications as prescribed. Return to hospital if you have chest pain, chest pressure, N/V/D or any other concerning symptoms for evaluation. Referrals: Vamsi Dunne MD [Partnered Physician] - 04/21/16 2:20 pm (pt to follow up with [facility] from hospital admission. Patient is schedule Dr. Gabriel. ) [place],PCP [Primary Care Provider] - 04/21/16 11:15 am (Pt will follow-up with [place] red team for hospital admission ) Prescriptions: Clopidogrel [Plavix] 75 mg PO DAILY #30 tablet <Anna Small - Last Filed: 04/16/16 14:40> Date of Encounter: 04/16/16 Assessment and Plan Discussion w patient/family: I examined this patient and my medical decision-making was reviewed with the R&D ENGINEER/PA/Advanced Practice Nurse/Resident Physician. I agree with the documented findings, disposition and treatment plan as described except to the extent set forth below. Mr. Galvan's blood sugars are not well controlled. We will have the Hospitalist service help with management before we consider discharge. Otherwise , recommend continuing DAPT, BB and ARB. Objective Vital Signs, Last 4 Hours Temp Pulse Resp BP Pulse Ox 04/16/16 11:19 98.2 F 88 20 115/71 91 L Results 04/15/16 05:58 04/16/16 09:44 Lab Results 04/16/16 09:44 Sodium 139 Potassium 5.0 H Chloride 108 Carbon Dioxide 24 BUN 22 Creatinine 1.26 H Glucose 211 H Calcium 9.2 Total Bilirubin 0.4 AST 57 H ALT 74 H Alkaline Phosphatase 208 H
[2016-04-16 10:07] LABS: Alanine Aminotransferase 74 Units/L (0-55); Albumin 2.3 g/dL (3.5-5.0); Albumin/Globulin Ratio 0.6 (1.1-2.2); Alkaline Phosphatase 208 Units/L (38-126); Aspartate Amino Transferase 57 Units/L (5-34); BUN/Creatinine Ratio 17 (6-26); Bilirubin,Total 0.4 mg/dL (0.2-1.2); Blood Urea Nitrogen 22 mg/dL (8-26); Calcium 9.2 mg/dL (8.6-10.8); Carbon Dioxide 24 mEq/L (19-29); Chloride 108 mEq/L (98-109); Globulin 4.1 g/dL (2.4-3.5); Glucose 211 mg/dL (70-99); Osmolality,Calculated 298 (280-300); Sodium 139 mEq/L (136-145); Total Protein 6.4 g/dL (6.0-8.3); eGFR For African Americans > 60 (> 60); eGFR For Non-African Americans 59 (> 60)
[2016-04-16] MEDS: Aspirin 81 MG TAB.CHEW PO SCH (10:19)
[2016-04-16] MEDS: Insulin LISPRO 300 UNITS/3 ML VIAL SQ SCH ×4 (10:19→21:29)
--- NOTE | 2016-04-16 10:56 | Discharge Summary ---
<Tye Leon - Last Filed: 04/16/16 10:18> Date of Encounter: 04/16/16 Time of Encounter: 10:18 - Discharge Diagnosis (1) STEMI (ST elevation myocardial infarction) Priority: Primary Status: Acute Qualifiers: Involved coronary artery: right coronary artery Qualified Code(s): I21.11 - ST elevation (STEMI) myocardial infarction involving right coronary artery (2) HTN (hypertension) Priority: Secondary Status: Acute Qualifiers: Qualified Code(s): I10 - Essential (primary) hypertension (3) Diabetes Priority: Secondary Status: Acute Qualifiers: Diabetes mellitus type: type 2 Diabetes mellitus complication status: with circulatory complication Diabetes mellitus complication detail: with other circulatory complications Qualified Code(s): E11.59 - Type 2 diabetes mellitus with other circulatory complications - Discharge Medications Prescriptions: Clopidogrel [Plavix] 75 mg PO DAILY #30 tablet Home Medications: Amlodipine [Norvasc] 5 mg PO DAILY 04/14/16 [History] Aspirin [Lo-Dose Aspirin EC] 81 mg PO DAILY 04/14/16 [History] Hydrochlorothiazide 25 mg PO DAILY 04/14/16 [History] Insulin Regular U-500 [HumuLIN R U-500] 250 unit SQ QAM 04/14/16 [History] Insulin Regular U-500 [HumuLIN R U-500] 270 unit SQ QPM 04/14/16 [History] Losartan Potassium [Cozaar] 50 mg PO DAILY 04/14/16 [History] Metoprolol [Lopressor] 25 mg PO BID 04/14/16 [History] Neomycin/Polymyxin B Sulf/Hc [Echcffqv-Cztlhhgzg-Lj Ear Soln] 3 drop LEFT EAR TID 04/14/16 [History] [place]-3/Dha/Epa/Fish Oil [Fish Oil 1,000 mg Softgel] 1 cap PO DAILY 04/14/16 [ History] Rosuvastatin Calcium [Crestor] 10 mg PO DAILY 04/14/16 [History] Clopidogrel [Plavix] 75 mg PO DAILY #30 tablet 04/16/16 [Rx] Allergies/Adverse Reactions: Allergies atorvastatin Allergy (Unknown, Verified 04/14/16 19:43) See Comments UNABLE TO VERIFY REACTION- [facility]ISTED ON [facility] lisinopril Allergy (Unknown, Verified 04/14/16 19:43) See Comments UNABLE TO VERIFY REACTION- LISTED ON [facility] L[facility] testosterone Allergy (Unknown, Verified 04/14/16 19:43) See Comments UNABLE TO VERIFY REACTION- LISTED ON [facility] L[facility] Procedures/tests Complete & Pending: Procedures Performed prior 72 hours Category Date Time Status ECG 12 lead ECG [ECG] Routine Y 04/14/16 16:14 Ordered ECG 12 lead ECG [ECG] Routine Y 04/15/16 07:00 Ordered ECG 12 lead ECG [ECG] Stat Y 04/14/16 16:14 Completed EV echocardiogram w enhance Routine Y 04/15/16 16:14 Completed Date of admission: 04/14/16 15:49 Primary care physician: [facility]CP [facility] Consults: 04/14/16 16:14 Consult to Cardiac Rehabilitation-Phase1 [CONS] Routine Comment: Reason for Consult: AMI Call Completed: Yes Consult to Nurse Navigator [CONS] Routine Comment: Discharging clinician: Tye Leon Anticipated date of discharge: 04/16/16 - Patient Status Disposition: Home, Self-Care Condition: Good Functional capacity at discharge: independent ambulation Overall status at discharge: patient is progressing back to baseline - Discharge Instructions Instructions: Myocardial Infarction (DC) Follow Up With: Vamsi Dunne MD [Partnered Physician] - 04/21/16 2:20 pm (pt to follow up with Chauffeur from hospital admission. Patient is schedule Dr. Gabriel. ) [place],PCP [Primary Care Provider] - 04/21/16 11:15 am (Pt will follow-up with [place] red team for hospital admission ) Additional Instructions: Take medications as prescribed. Return to hospital if you have chest pain, chest pressure, N/V/D or any other concerning symptoms for evaluation. - Diet and Activity Activity: increase activity as tolerated Diet: diabetic diet, low fat, low cholesterol, low salt diet - Hospital Course Hospital course: Mr. Galvan is a 55 year old male with known history of DM type II, HTN, MO with previous stents, morbid obesity was admitted to [facility] for STEMI and underwent PCI RCA SCOTT x 2 (100%) with otherwise mild disease. EF 40%. Patient tolerated procedure well without complication. Patient remained in the hospital post cardiac catherization for 2 days while maximizing medical therapy. On 04/16/2016 patient was deemed stable for discharge home with close follow up with his PCP and [facility]. This was discussed with the patient along with the new medications he was discharged home with. Mr. Galvan demonstrated understanding. Echocardiogram 04/15/2016: Moderate LV systolic dysfunction, LVEF 35-40%. There is severe hypokinesis of the basal-mid inferior and basal-mid inferolateral cabrera. Mild concetric left ventricular hypetrophy. Moderate left ventricular diastolic dysfunction. Normal right ventricular size, mild RV hypokinesis. Mild tricuspid regurgitation, mild pulmonary hypertension. RVSP 37mmHg. - Time Spent with Patient Total time spent providing and/or coordinating discharge services: Physical Examination Vital Signs, Last 4 Hours Temp Pulse Resp BP Pulse Ox 04/16/16 07:51 97.6 F 84 18 119/80 95 General: Conversant, No Apparent Distress HEENT: Atraumatic, Normocephaly, Mucus Membranes Moist Neck: No JVD, Normal carotid pulses Cardiac: Reg Rate and Rhythm, Normal S1 and S2, No Murmur Lungs: Normal Breath Sounds, No Wheeze, Rales, Rhonchi Neuro: Alert and responsive, No focal deficits noted Abdomen: Soft, Non-Tender Skin: No rashes noted on visualized skin Musculoskeletal: No Chest Wall Tenderness Extremities: No Clubbing, No Cyanosis, Normal Pulses Other: Further details refer to todays progress note. <Anna Small - Last Filed: 04/16/16 16:46> Date of Encounter: 04/16/16 Procedures/tests Complete & Pending: Procedures Performed prior 72 hours Category Date Time Status ECG 12 lead ECG [ECG] Routine Y 04/14/16 16:14 Ordered ECG 12 lead ECG [ECG] Routine Y 04/15/16 07:00 Ordered ECG 12 lead ECG [ECG] Stat Y 04/14/16 16:14 Completed EV echocardiogram w enhance Routine Y 04/15/16 16:14 Completed Date of admission: 04/14/16 15:49 Primary care physician: PCP [facility] Consults: 04/14/16 16:14 Consult to Cardiac Rehabilitation-Phase1 [CONS] Routine Comment: Reason for Consult: AMI Call Completed: Yes Consult to Nurse Navigator [CONS] Routine Comment: 04/16/16 14:39 Consult to Hospitalist [CONS] Routine Consulting Provider: Hospitalist Casimiro Reason for Consult: Diabetes management Time Notified: 14:39 Call Completed: Yes - Hospital Course Hospital course: Mr. Galvan is a 55 year old male - Time Spent with Patient Total time spent providing and/or coordinating discharge services: Physical Examination Vital Signs, Last 4 Hours Temp Pulse Resp BP Pulse Ox 04/16/16 14:42 97.9 F 82 18 120/81 95 - Attending Attestation I examined this patient and my medical decision-making was reviewed with the AUTO BUMPER MECHANIC/PA/Advanced Practice Nurse/Resident Physician. I agree with the documented findings, disposition and treatment plan as described except to the extent set forth below. I was contacted by pharmacy later in the day due to difficulty with blood sugar management. We have therefore decided to consult hospitalist service for the help in management and cancel discharge for now.
[2016-04-16] MEDS: *HR* Insulin Regular U-500 500 UNIT/ML SQ SCH (12:41)
--- NOTE | 2016-04-16 14:43 | Event Note ---
Date of Encounter: 04/16/16 Time of Encounter: 14:41 - Cardiology Event Note I received a page from Pharmacy who contacted me about diabetic medication. There seems to be some confusion about patient's home dosing of diabetic meds/ insulin and a challenge controlling blood glucose here. I have called the Hospitalist service to help with management. We will have them evaluate the person and put discharge on hold. I discussed this with the patient.
--- NOTE | 2016-04-16 16:00 | Internal Medicine Consult Note ---
Date of Encounter: 04/16/16 Time of Encounter: 16:00 Internal Medicine - CN: HPI - Data of Consult Patient: new to practice Requesting Physician: Dr.Victoria Small - Consult Narrative Reason for consult: Hyperglycemia History of present illness: Mr. Galvan is a 55 year old male with history of hypertension and diabetes, initially admitted for ST elevation PA to cardiology service and received a drug -eluting stent to right coronary artery and is doing well currently. Patient is noted to have fluctuating blood sugars in the hospital. He initially had hypoglycemia and his insulin was held and currently his blood sugars are noted to be elevated between 200 and 100. He lives alone and his medication compliance is questionable. However he reports that he does take his insulin regularly and he takes 250 units of U500 regular insulin in the morning and 270 units at night, which seems to be a very high dose. Patient is noted to be morbidly obese and is noncompliant to diabetic diet. He currently reports no chest pain, shortness of breath, abdominal pain, leg swelling. No nausea, vomiting and he is noted to have a good appetite. - Constitutional Constitutional: as per HPI - EENT Eyes: as per HPI - Cardiovascular Cardiovascular ROS IM: as per HPI - Respiratory Respiratory: as per HPI - Gastrointestinal Gastrointestinal: as per HPI - Genitourinary Genitourinary ROS male: as per HPI - Musculoskeletal Musculoskeletal ROS IM: as per HPI - Integumentary Integumentary IM: as per HPI - Neurological Neurological ROS: as per HPI - Hematologic/Lymphatic Hematologic/Lymphatic: as per HPI Past Med Surg Social Fam HX - Past Medical History Medical history: coronary artery disease, diabetes, hyperlipidemia, hypertension , myocardial infarction Psychiatric history: no psych history - Past Surgical History Surgical History: no surgical history - Social History Smoking Status: Never smoker Smokeless Tobacco Status: No Alcohol use: occasionally Drug use: marijuana Current living situation: Home - Independent Activity Level: Independent ambulation Recent Out of Country Travel Within the Last 8 Weeks: No Exposure or Possible Exposure to Illness During Travel: No - Additional Family History Additional family history: Reviewed and found noncontributory Internal Medicine - CN: Meds Amlodipine [Norvasc] 5 mg PO DAILY 04/14/16 [History] Aspirin [Lo-Dose Aspirin EC] 81 mg PO DAILY 04/14/16 [History] Hydrochlorothiazide 25 mg PO DAILY 04/14/16 [History] Insulin Regular U-500 [HumuLIN R U-500] 250 unit SQ QAM 04/14/16 [History] Insulin Regular U-500 [HumuLIN R U-500] 270 unit SQ QPM 04/14/16 [History] Losartan Potassium [Cozaar] 50 mg PO DAILY 04/14/16 [History] Metoprolol [Lopressor] 25 mg PO BID 04/14/16 [History] Neomycin/Polymyxin B Sulf/Hc [Ynpypxot-Zkuvkgthf-Dj Ear Soln] 3 drop LEFT EAR TID 04/14/16 [History] [place]-3/Dha/Epa/Fish Oil [Fish Oil 1,000 mg Softgel] 1 cap PO DAILY 04/14/16 [ History] Rosuvastatin Calcium [Crestor] 10 mg PO DAILY 04/14/16 [History] Clopidogrel [Plavix] 75 mg PO DAILY #30 tablet 04/16/16 [Rx] Allergies atorvastatin Allergy (Unknown, Verified 04/14/16 19:43) See Comments UNABLE TO VERIFY REACTION- LISTED ON [facility] MED LIST lisinopril Allergy (Unknown, Verified 04/14/16 19:43) See Comments UNABLE TO VERIFY REACTION- LISTED ON [facility] MED LIST testosterone Allergy (Unknown, Verified 04/14/16 19:43) See Comments UNABLE TO VERIFY REACTION- LISTED ON [facility] MED LIST Internal Medicine - CN: Exam - Constitutional Vitals: Temp Pulse Resp BP Pulse Ox 97.9 F 82 18 120/81 95 04/16/16 14:42 04/16/16 14:42 04/16/16 14:42 04/16/16 14:42 04/16/16 14:42 General appearance IM: Present: A&O X 3, morbidly obese, answers questions appropriately - Head Head exam: Present: atraumatic - Eye Eye exam: Present: EOMI - Neck Neck exam general surgery: Present: full ROM (Thick short neck), supple, trachea midline - Respiratory Respiratory exam: Present: CTAB - Cardiovascular Cardiovascular exam IM: Present: RRR, +S1, +S2 - GI/Abdominal GI/Abdominal exam IM: Present: normal bowel sounds, soft (Extremely obese, nontender) - Extremities Exam Extremities exam IM: Present: full ROM, warm, radial pulses palpable and symetrical - Neurological Exam Neurological exam: Present: CN II-XII intact, oriented X3, no focal deficits, strengths equal and symetr throughout - Skin Skin exam IM: Present: dry, warm Internal Medicine - CN: Reslt - Labs CBC & Chem 7: 04/15/16 05:58 04/16/16 09:44 Labs: BMP 04/16/16 09:44 Sodium 139 Potassium 5.0 H Chloride 108 Carbon Dioxide 24 BUN 22 Creatinine 1.26 H Glucose 211 H Calcium 9.2 Liver Function 04/16/16 Range/Units 09:44 Total Bilirubin 0.4 (0.2-1.2) mg/dL AST 57 H (5-34) Units/L ALT 74 H (0-55) Units/L Alkaline Phosphatase 208 H (38-126) Units/L Albumin 2.3 L (3.5-5.0) g/dL - ABG Interpretation ABG results: PT/INR, D-dimer PT 13.2 Seconds (9.4-12.1) H 04/14/16 15:15 - Assessment and Plan (1) Diabetes mellitus Current Visit: Yes Status: Chronic Assessment and plan: Continue Accu-Chek blood glucose monitoring. Patient was initially given basal bolus insulin regimen with Levemir and Humalog. This was changed to his home insulin of regular insulin U500 and he received 100 units twice daily. He is noted to have a fasting blood sugar of 106 this morning and his preprandial blood sugars during the day have been elevated in the high 300s and low 400s. We will increase his morning dose to 150 units and continue the evening dose at 100 units at this time. He needs to be monitored for another day in the hospital to appropriately determine his insulin requirements. Thank you for the consult, we will continue to follow with you. 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 Continue medications per cardiology service. Qualifiers: Involved coronary artery: right coronary artery Qualified Code(s): I21.11 - ST elevation (STEMI) myocardial infarction involving right coronary artery Consult Discharge Plan - Plan Instructions: Myocardial Infarction (DC) Additional Instructions: Take medications as prescribed. Return to hospital if you have chest pain, chest pressure, N/V/D or any other concerning symptoms for evaluation. Referrals: Vamsi Dunne MD [Partnered Physician] - 04/21/16 2:20 pm (pt to follow up with Coating Line Worker from hospital admission. Patient is schedule Dr. Gabriel. ) [place],PCP [Primary Care Provider] - 04/21/16 11:15 am (Pt will follow-up with [place] red team for hospital admission ) Prescriptions: Clopidogrel [Plavix] 75 mg PO DAILY #30 tablet
[2016-04-16 16:55] LABS: Hemoglobin A1C 9.2 %
[2016-04-16] MEDS ORDERED: *HR* Insulin Regular U-500 500 UNIT/ML SQ SCH (21:00)
[2016-04-17] MEDS: *HR* Enoxaparin 40 MG/0.4 ML SYRINGE SQ SCH (05:33)
[2016-04-17] MEDS: Insulin LISPRO 300 UNITS/3 ML VIAL SQ SCH (07:38)
[2016-04-17 07:53] VITALS: BP 109/69
[2016-04-17] MEDS ORDERED: *HR* Insulin Regular U-500 500 UNIT/ML SQ SCH ×4 (09:00→21:00)
[2016-04-17] MEDS: Aspirin 81 MG TAB.CHEW PO SCH (10:48)
--- NOTE | 2016-04-17 12:01 | Discharge Summary ---
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 - Discharge Medications Prescriptions: Clopidogrel [Plavix] 75 mg PO DAILY #30 tablet Home Medications: Amlodipine [Norvasc] 5 mg PO DAILY 04/14/16 [History] Aspirin [Lo-Dose Aspirin EC] 81 mg PO DAILY 04/14/16 [History] Hydrochlorothiazide 25 mg PO DAILY 04/14/16 [History] Insulin Regular U-500 [HumuLIN R U-500] 250 unit SQ QAM 04/14/16 [History] Insulin Regular U-500 [HumuLIN R U-500] 270 unit SQ QPM 04/14/16 [History] Losartan Potassium [Cozaar] 50 mg PO DAILY 04/14/16 [History] Metoprolol [Lopressor] 25 mg PO BID 04/14/16 [History] Neomycin/Polymyxin B Sulf/Hc [Ptegyzdb-Bmmrvqsyj-Py Ear Soln] 3 drop LEFT EAR TID 04/14/16 [History] [place]-3/Dha/Epa/Fish Oil [Fish Oil 1,000 mg Softgel] 1 cap PO DAILY 04/14/16 [ History] Rosuvastatin Calcium [Crestor] 10 mg PO DAILY 04/14/16 [History] Clopidogrel [Plavix] 75 mg PO DAILY #30 tablet 04/16/16 [Rx] Allergies/Adverse Reactions: Allergies atorvastatin Allergy (Unknown, Verified 04/14/16 19:43) See Comments UNABLE TO VERIFY REACTION- LISTED ON [facility] MED LIST lisinopril Allergy (Unknown, Verified 04/14/16 19:43) See Comments UNABLE TO VERIFY REACTION- LISTED ON [facility] MED LIST testosterone Allergy (Unknown, Verified 04/14/16 19:43) See Comments UNABLE TO VERIFY REACTION- LISTED ON [facility] MED LIST Procedures/tests Complete & Pending: Procedures Performed prior 72 hours Category Date Time Status ECG 12 lead ECG [ECG] Routine Y 04/14/16 16:14 Ordered ECG 12 lead ECG [ECG] Routine Y 04/15/16 07:00 Ordered ECG 12 lead ECG [ECG] Stat Y 04/14/16 16:14 Completed EV echocardiogram w enhance Routine Y 04/15/16 16:14 Completed Date of admission: 04/14/16 15:49 Primary care physician: PCP [facility] Consults: 04/14/16 16:14 Consult to Cardiac Rehabilitation-Phase1 [CONS] Routine Comment: Reason for Consult: AMI Call Completed: Yes Consult to Nurse Navigator [CONS] Routine Comment: 04/16/16 14:39 Consult to Hospitalist [CONS] Routine Consulting Provider: Hospitalist Casimiro Reason for Consult: Diabetes management Time Notified: 14:39 Call Completed: Yes Discharging clinician: Suleiman Bah Anticipated date of discharge: 04/17/16 - Patient Status Disposition: Home, Self-Care Condition: Good - Discharge Instructions Instructions: Myocardial Infarction (DC) Follow Up With: Vamsi Dunne MD [Partnered Physician] - 04/21/16 2:20 pm (pt to follow up with Entertainer & Comic from hospital admission. Patient is schedule Dr. Gabriel. ) [place],PCP [Primary Care Provider] - 04/21/16 11:15 am (Pt will follow-up with [place] red team for hospital admission ) Additional Instructions: Take medications as prescribed. Return to hospital if you have chest pain, chest pressure, N/V/D or any other concerning symptoms for evaluation. - Hospital Course Hospital course: Mr. Galvan is a 55 year old male - Time Spent with Patient Total time spent providing and/or coordinating discharge services:
--- NOTE | 2016-04-17 12:08 | Event Note ---
Date of Encounter: 04/17/16 Time of Encounter: 12:00 - Cardiology Event Note Laboratory Tests 04/17/16 10:48 POC Glucose 182 H Patient discharge postponed yesterday until hospitalist consult completed for evaluation of diabetes medications. Discussed and reviewed with Dr. Byrd ( Hospitalist), with recommendations to resume previous home insulin regimen. No further medication changes made. Patient denies any chest pain overnight. Anxious for discharge. Right groin site dry and intact with no bleeding, no hematoma, mild ecchymosis. Will proceed with discharge as already coordinated yesterday. New script for Plavix on chart.
--- NOTE | 2016-04-17 13:42 | Internal Med Progress Note ---
Date of Encounter: 04/17/16 Time of Encounter: 11:00 - Assessment and plan (1) Diabetes mellitus Current Visit: Yes Status: Chronic Assessment and plan: The patient was seen and examined, he is a type II diabetic with ongoing insulin therapy. Recommend to resume his home dose of insulin. He was instructed to monitor his fingersticks at home. His hemoglobin A1c is 9.2. Being a morbidly obese patient, insulin resistance is likely a contributing factor for the high doses of insulin that he usually needs to control his hyperglycemia. However, currently the patient is otherwise stable and can continue with his diabetes management as outpatient and follow up with his PCP. ADA diet was recommended. The plan of care was discussed in detail with the patient, he verbally expressed understanding. No additional recommendations at this point. Thank you for the consult. 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 insulin use: with middle or intermediate school principal use Qualified Code(s): E11.65 - Type 2 diabetes mellitus with hyperglycemia; Z79.4 - terminal clerk (current) use of insulin (2) HTN (hypertension) Current Visit: Yes Status: Chronic Qualifiers: Hypertension type: essential hypertension Qualified Code(s): I10 - Essential (primary) hypertension (3) Morbid obesity with BMI of 50.0-59.9, adult Current Visit: Yes Status: Chronic (4) STEMI (ST elevation myocardial infarction) Current Visit: Yes Status: Acute Qualifiers: Involved coronary artery: unspecified coronary artery Qualified Code(s): I21.3 - ST elevation (STEMI) myocardial infarction of unspecified site - Time Spent With Patient 25 - 35 minutes - Subjective Interval history: Patient denies chest pain, shortness of breath. currently at his baseline. - Constitutional Vitals: Temp Pulse Resp BP Pulse Ox 98.3 F 84 17 109/69 96 04/17/16 07:00 04/17/16 07:00 04/17/16 07:00 04/17/16 07:00 04/17/16 07:00 General appearance: Present: A&O X 3, morbidly obese, answers questions appropriately - Head Head exam: Present: atraumatic, normocephalic - Eye Eye exam: Present: PERRL, conjuntiva pink, sclera anicteric Pupils: Present: PERRL - Neck Neck exam general surgery: Present: supple, trachea midline. Absent: lymphadenopathy - Respiratory Respiratory exam: Present: CTAB. Absent: accessory muscle use, rales, rhonchi, wheezes - Cardiovascular Cardiovascular exam: Present: RRR, +S1, +S2. Absent: diastolic murmur, gallop, rubs, systolic murmur - GI/Abdominal GI/Abdominal exam: Present: normal bowel sounds, soft, no peritoneal signs. Absent: distended, tenderness - Extremities Exam Extremities exam: Present: warm, radial pulses palpable and symetrical. Absent : calf tenderness, cyanotic, pedal edema - Neurological Exam Neurological exam: Present: CN II-XII intact, oriented X3, no focal deficits. Absent: pronater drift, facial droop, speech deficit - Skin Skin exam: Present: dry, intact Internal Medicine: Result - Labs CBC & Chem 7: 04/15/16 05:58 04/16/16 09:44 - ABG Interpretation ABG results: PT/INR, D-dimer PT 13.2 Seconds (9.4-12.1) H 04/14/16 15:15 Consult Discharge Plan - Plan Instructions: Myocardial Infarction (DC), Diabetes Mellitus Type 2 in Adults ( DC), Weight Management (DC), Chronic Hypertension (DC) Additional Instructions: Take medications as prescribed. Return to hospital if you have chest pain, chest pressure, N/V/D or any other concerning symptoms for evaluation. Referrals: Vamsi Dunne MD [Partnered Physician] - 04/21/16 2:20 pm (pt to follow up with Certified Legal Secretary Specialist from hospital admission. Patient is schedule Dr. Gabriel. ) [place],PCP [Primary Care Provider] - 04/21/16 11:15 am (Pt will follow-up with [place] red team for hospital admission ) Prescriptions: Clopidogrel [Plavix] 75 mg PO DAILY #30 tablet
== END 2016-04-17 13:24 | disposition home or self-care (01) | DRG 247 ==
LOC: EMEROO 14:59 → ICNU 15:00 → EMEROO 15:21 → ICNU 15:49 → 2ANU 04-15 19:55
PROVIDERS: ADMIT Emergency Medicine; ATTEND Emergency Medicine